=== PATIENT | female | born 1950 | race Caucasian/White ===

== ENCOUNTER 2023-02-16 06:08 | Day surgery (SDC) | payer MEDICARE ==
[2023-02-15 12:45] LABS: BASOPHILS # (AUTO) 0.1 X10'3 (0-0.2); BASOPHILS % (AUTO) 1.1 % (0-1); EOSINOPHILS # (AUTO) 0.2 X10'3 (0-0.9); EOSINOPHILS % (AUTO) 2.3 % (0-6); HEMATOCRIT 41.4 % (35.0-45.0); HEMOGLOBIN 13.8 g/dl (12.0-16.0); LYMPHOCYTES # (AUTO) 2.7 X10'3 (1.1-4.8); LYMPHOCYTES % (AUTO) 36.3 % (21-51); MEAN CORPUSCULAR HEMOGLOBIN 30.9 PG (27.0-31.0); MEAN CORPUSCULAR HGB CONC 33.4 g/dL (33.0-36.5); MEAN CORPUSCULAR VOLUME 92.5 FL (78-98); MONOCYTES # (AUTO) 0.8 X10'3 (0-0.9); MONOCYTES % (AUTO) 10.2 % (2-12); NEUTROPHILS # (AUTO) 3.7 X10'3 (1.8-7.7); NEUTROPHILS % (AUTO) 50.1 % (42-75); PLATELET COUNT 216 X10'3 (140-440); RED BLOOD COUNT 4.47 X10'6 (4.20-5.60); RED CELL DISTRIBUTION WIDTH 13.9 % (11.5-14.5); WHITE BLOOD COUNT 7.3 X10'3 (4.5-11.0)
[2023-02-15 12:54] LABS: ALBUMIN 3.2 G/DL (3.4-5.0); ANION GAP 7 (8-16); BLOOD UREA NITROGEN 19 MG/DL (7-18); CALCIUM 8.8 MG/DL (8.5-10.1); CHLORIDE 105 MMOL/L (99-107); CREATININE 0.76 MG/DL (0.40-0.90); GLUCOSE 86 MG/DL (70-104); POTASSIUM 3.9 MMOL/L (3.5-5.1); SODIUM 139 MMOL/L (135-145); TOTAL CARBON DIOXIDE 26.6 MMOL/L (24-32); eGFR 75 ML/MIN
[2023-02-15 12:59] LABS: APTT 27 SECONDS (22-32)
[2023-02-16] VITALS (11 sets, daily range): BP systolic 129–152; BP diastolic 62–85
[~2023-02-16] VITALS: Ht 157.5 cm; Wt 127.4 kg
[2023-02-16] MEDS ORDERED: diphenhydrAMINE 25mg capsule PO PRN (06:25)
[2023-02-16] MEDS ORDERED: normal saline 1,000 ML IV SCH (06:25)
[2023-02-16] MEDS ORDERED: LORazepam 0.5 MG tablet PO PRN (06:25)
[2023-02-16] MEDS ORDERED: LOSA100T58 PO (06:46)
[2023-02-16] MEDS ORDERED: HYDR12.55 PO (06:46)
[2023-02-16] MEDS ORDERED: PANT40TA54 PO (06:46)
[2023-02-16] MEDS ORDERED: PARO20TA6 PO (06:47)
[2023-02-16] MEDS ORDERED: FERR-119 PO (06:57)
[2023-02-16] MEDS ORDERED: MULT-1085 PO (06:58)
[2023-02-16] MEDS ORDERED: [UNRECOGNIZED DRUG - MIXTURE] (06:59)
[2023-02-16] MEDS ORDERED: GREE250C (07:00)
[2023-02-16] MEDS ORDERED: FLUT16SP2 BOTHNARES (07:00)
[2023-02-16] MEDS ORDERED: OMEG1CAP46 PO (07:01)
[2023-02-16] MEDS ORDERED: nitroGLYCERIN-Tridil 50MG/D5W 250 ML IV ONE (07:27)
[2023-02-16] MEDS ORDERED: midazolam 1 mg/ML 2ml injection ONE (08:18)
[2023-02-16 08:42] LABS: ISTAT HGB ART 13.3 g/dl (12.0-16.0); ISTAT Hct ART 39 %PCV (35-45); ISTAT O2 SATURATION ARTERIAL 94 % (95-98); ISTAT SOURCE ART
== END 2023-02-16 12:50 | disposition home or self-care (01) ==
LOC: SSTAY O 06:08
PROVIDERS: ATTEND Internal Medicine Cardiovascular Disease
DX: R94.39 Abnormal result of other cardiovascular function study (principal); R06.02 Shortness of breath; I25.10 Atherosclerotic heart disease of native coronary artery without angina pectoris; I10 Essential (primary) hypertension; K21.9 Gastro-esophageal reflux disease without esophagitis; M17.0 Bilateral primary osteoarthritis of knee; M16.0 Bilateral primary osteoarthritis of hip; F41.9 Anxiety disorder, unspecified; E66.01 Morbid (severe) obesity due to excess calories; Z68.43 Body mass index [BMI] 50.0-59.9, adult; E11.9 Type 2 diabetes mellitus without complications; E78.5 Hyperlipidemia, unspecified; D50.9 Iron deficiency anemia, unspecified; Z79.899 Other long term (current) drug therapy; Z90.49 Acquired absence of other specified parts of digestive tract; Z98.84 Bariatric surgery status; Z72.89 Other problems related to lifestyle; Z88.8 Allergy status to other drugs, medicaments and biological substances; Z98.890 Other specified postprocedural states; Z82.49 Family history of ischemic heart disease and other diseases of the circulatory system
CPT/HCPCS: 36415; 76937; 80048; 82803; 85014; 85025; 85610; 85730; 93005; 93460; 99152; J3490; J7030; Q0163; 99153; A6258; A6402; C1725; C1769; C1894; J2250